=== PATIENT | female | born 1955 | race Caucasian/White ===

== ENCOUNTER → 2019-07-14 15:58 | Outpatient (CLI) | payer BC, SELFPAY ==
--- NOTE | 2019-07-14 16:06 | XR_ITS ---
PROCEDURE: XR LUMBAR SPINE MIN 4V CLINICAL INDICATION: LOW BACK PAIN COMPARISON: No exams were available for comparison FINDINGS: There is mild lumbar curvature convex right. There is 4-5 mm anterolisthesis of L3 on L4 and L4 on L5. Degenerative disc disease is present at L5-S1. Facet arthritic changes are present at L4 and L5. no fracture or dislocation. No lytic or blastic change IMPRESSION: Degenerative changes as described above Dictated by: Elan Lucero MD 07/15/2019 10:25 Signed by: <Electronically signed by Elan Lucero MD in [place]> 07/15/2019 10:25
== END ==
PROVIDERS: PCP Family Medicine; Visit Provider Anesthesiology Pain Medicine
DX: M54.5 Low back pain (principal)
CPT/HCPCS: 72110

== ENCOUNTER → 2019-08-01 14:56 | Outpatient (POV) | payer BC, SELFPAY | PROVIDERS: Visit Provider Dermatology | DX: Z00.00 Encounter for general adult medical examination without abnormal findings (principal) ==

== ENCOUNTER 2020-06-23 14:38 | Emergency (ER) | payer BC, SELFPAY ==
[2020-06-23] VITALS (7 sets, daily range): BP systolic 116–145; BP diastolic 57–92; PULSE 64–101; RESP 17–20; TEMP 36.6–36.7; O2SAT 93–99; BMI 38.0
--- NOTE | 2020-06-23 14:52 | HMH.EDEPIS ---
ED Disposition Clinical Impression: Epistaxis Disposition: Home, Self-Care Condition on Discharge: Good Instructions: DI for Nosebleed Additional Instructions: Leave rapid Rhino in for 24 hours and follow-up with ENT. Referrals: PCP,No [Non-Staff] - Kurt Atkins MD [Staff Physician] - - Critical Care Critical Care Time: No Attestation: On 06/23/20, the high probability of a clinically significant, sudden or life threatening deterioration of the following system(s) required my full and direct attention, intervention and personal management. The time I documented below is in addition to time spent performing reported procedures but includes the following listed in this critical care notation. Medical Decision Making - Medical Records Medical records reviewed: Yes: I reviewed the patient's medical records. - [place] Inquiry Pt receiving controlled substance: No Vital Signs: 06/23/20 14:39 06/23/20 14:44 06/23/20 15:16 Temperature 98.1 F Temperature Source Oral Pulse Rate [Right] 86 71 101 H Respiratory Rate 17 18 17 Blood Pressure [Right Arm] 137/74 134/74 116/66 Blood Pressure Mean [Right Arm] 95 94 82 Blood Pressure Source [Right Arm] Automatic Cuff Automatic Cuff Blood Pressure Position [Right Arm] Supine Supine 02 Sat by Pulse Oximetry 95 99 94 L Oxygen Delivery Method Room Air Room Air 06/23/20 15:36 Temperature Temperature Source Pulse Rate [Right] 74 Respiratory Rate 20 Blood Pressure [Right Arm] 116/57 L Blood Pressure Mean [Right Arm] 76 Blood Pressure Source [Right Arm] Automatic Cuff Blood Pressure Position [Right Arm] Supine 02 Sat by Pulse Oximetry 93 L Oxygen Delivery Method Room Air - Lab Data Lab results reviewed: Yes: I reviewed the patient's lab results. Lab Results 06/23/20 15:34: WBC 8.9, RBC 4.82, Hgb 12.1 L, Hct 36.9 L, MCV 76.6 L, MCH 25.2 L, MCHC 32.8, RDW 18.1 H, Plt Count 238, MPV 9.1, Neut % (Auto) 57.4, Lymph % (Auto) 30.4, [place] % (Auto) 5.2, Eos % (Auto) 6.0, Baso % (Auto) 1.0, Neut # (Auto) 5.1, Lymph # (Auto) 2.7, [place] # (Auto) 0.5, Eos # (Auto) 0.5 H, Baso # (Auto) 0.1 Result diagrams: 06/23/20 15:34 Orders (Tests/Meds): ED MEDICATIONS Discontinued Medications Generic Name Dose Route Start Last Admin Trade Name Rubens PRN Reason Stop Dose Admin Oxymetazoline HCl 1 ml 06/23/20 14:51 06/23/20 15:11 Afrin Nasal [place] 15ml NS 06/23/20 14:52 2 sprays ONCE ONE Administration Epistaxis HPI - General Chief complaint: Epistaxis Stated complaint: epitaxis Time Seen by Provider: 06/23/20 14:50 Mode of Arrival: Ambulatory Source of Information: Patient Limitations: No Limitations Description of Symptoms (Recalled from ER Triage Doc. by RN): Epitaxis since 7 this monring, states she has had some small clots. Pt does take xerelto - History of Present Illness HPI Narrative: This is a 65-year-old female that presents with epistaxis of the left nare. Patient reports intermittent nosebleeds over the past 2 to 3 weeks. 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 She reports her nosebleed has persisted since 0 700 this morning and that she has large clots when blowing the nose. She denies any headache or any fever or chills. Blood presents primarily from the nasal cavity instead of coming through the mouth. Symptoms are moderate in intensity and not exacerbated or relieved by any measures thus far. - Related Data Home Medications Medication Instructions Recorded Confirmed allopurinol 300 mg tablet 300 mg PO DAILY 11/24/18 11/24/18 furosemide 40 mg tablet 40 mg PO DAILY 11/24/18 11/24/18 levothyroxine 112 mcg tablet 112 mcg PO DAILY 11/24/18 11/24/18 methocarbamol 750 mg tablet 750 mg PO QID 11/24/18 11/24/18 omeprazole 20 mg capsule,delayed 20 mg PO DAILY 11/24/18 11/24/18 release pregabalin 150 mg capsule 150 mg PO BID 11/24/18 11/24/18 rivaroxaban 20 mg tablet 20 mg PO DAILY 11/24/18
[2020-06-23 15:44] LABS: Basophils # 0.1 K/mm3 (0-0.2); Eosinophils # 0.5 K/mm3 (0.0-0.4); Hematocrit 36.9 % (37.0-47.0); Hemoglobin 12.1 g/dL (12.2-16.2); Lymphocytes # 2.7 K/mm3 (0.7-4.5); Lymphocytes % 30.4 % (10-50); Mean Corpuscular HGB Conc 32.8 g/dL (31.8-35.4); Mean Corpuscular Hemoglobin 25.2 pg (27.0-31.2); Mean Corpuscular Volume 76.6 fl (81-99); Mean Platelet Volume 9.1 fl (7.4-10.4); Monocytes # 0.5 K/mm3 (0.1-1.0); Monocytes % 5.2 % (1.7-9.3); Neutrophils # 5.1 K/mm3 (1.8-7.8); Neutrophils % 57.4 % (37.0-80.0); Platelet Count 238 K/mm3 (142-424); Red Blood Count 4.82 M/mm3 (4.20-5.40); Red Cell Distribution Width 18.1 % (11.5-17.5); White Blood Count 8.9 K/mm3 (4.8-10.8)
== END 2020-06-23 17:25 | disposition home or self-care (01) ==
PROVIDERS: Emergency Provider Emergency Medicine; PCP Family Medicine
DX: R04.0 Epistaxis (principal); Z79.01 Long term (current) use of anticoagulants; K21.9 Gastro-esophageal reflux disease without esophagitis; I10 Essential (primary) hypertension
CPT/HCPCS: 30901; 85025; 99283

== ENCOUNTER → 2021-05-13 14:05 | Outpatient (CLI) | payer MEDICARE, OTHER, SELFPAY ==
--- NOTE | 2021-05-13 14:10 | US_ITS ---
PROCEDURE: US KIDNEY CLINICAL INDICATION: KIDNEY STONES,CALCULUS OF KIDNEY COMPARISON: CT ABDPELW/O CT ABD PELVIS W/O CONTRAST from 12/22/2016 FINDINGS: There is normal echogenicity and echotexture of the kidneys. No hydronephrosis renal mass or stone. Of the renal vascular flow bilaterally. Visualized liver shows some diffuse fatty infiltration. Visualized spleen is normal. Right kidney measures 10 cm in length and the left kidney 9 cm in length. IMPRESSION: Normal renal ultrasound. No hydronephrosis of either kidney. Dictated by: Jignesh Elena MD 05/13/2021 15:21 Jignesh Elena MD in [place] 05/13/2021 15:21
== END ==
PROVIDERS: PCP Family Medicine; Visit Provider Urology
DX: N20.0 Calculus of kidney (principal)
CPT/HCPCS: 76770

== ENCOUNTER → 2021-06-04 14:29 | Outpatient (CLI) | payer MEDICARE, OTHER, SELFPAY ==
--- NOTE | 2021-06-04 14:41 | XR_ITS ---
PROCEDURE: XR CERVICAL SPINE 5V CLINICAL INDICATION: CERVICALGIA COMPARISON: CR CS5 CERVICAL SPINE 4 OR 5 VIEWS from 05/01/2013 FINDINGS: Normal alignment. Status post anterior cervical disc fusion at C5 and C6 with inter body device. There is degenerative disc disease at C4-C5 with endplate osteophytes. No foraminal narrowing. Facet arthritic changes are present at C3-C4 and C5. no acute fracture or dislocation. IMPRESSION: Postsurgical changes. Degenerative disc disease C4-C5 Dictated by: Elan Lucero MD 06/04/2021 17:12 Elan Lucero MD in [place] 06/04/2021 17:12
== END ==
PROVIDERS: PCP Family Medicine; Visit Provider Nurse Practitioner Acute Care
DX: M54.2 Cervicalgia (principal)
CPT/HCPCS: 72050

== ENCOUNTER → 2021-12-03 14:03 | Outpatient (CLI) | payer MEDICARE, OTHER, SELFPAY ==
--- NOTE | 2021-12-03 14:10 | XR_ITS ---
FINAL REPORT CLINICAL HISTORY: . Low back pain, spinal stenosis. FINDINGS: LUMBAR SPINE Six views were obtained including flexion and extension views. There is no acute fracture. There is advanced disc space narrowing at L5-S1. There is mild instability at the L3-L4 and L4-L5 levels which is accentuated in flexion. In flexion the instability measures about 4 mm at the L3-L4 level and 5 mm at the L4-L5 level. There is moderate facet sclerosis. There is no soft tissue abnormality. IMPRESSION: Spondylolisthesis of L3 on L4 and L4 on 5, accentuated in flexion and consistent with instability. Reviewed, Interpreted and Dictated by Clemente Desai MD Transcribed by Arianna Rao Authenticated by Clemente Desai MD on 12/03/2021 03:54:45 PM [facility]
== END ==
PROVIDERS: PCP Family Medicine; Visit Provider Nurse Practitioner Family
DX: M48.062 Spinal stenosis, lumbar region with neurogenic claudication (principal)
CPT/HCPCS: 72114

== ENCOUNTER → 2022-06-10 14:39 | Outpatient (CLI) | payer MEDICARE, OTHER, SELFPAY ==
--- NOTE | 2022-06-10 14:51 | XR_ITS ---
FINAL REPORT CLINICAL HISTORY: LBP w spondylolisthesis FINDINGS: 4 views including flexion and extension views were obtained. There is no acute fracture. There is grade 1 spondylolisthesis of L3 on L4 and L4 on L5. There is accentuation of spondylolisthesis at L3 on L4 during flexion. There is advanced facet sclerosis throughout the lumbar spine. There is 15 degrees of lumbar scoliosis convex to the right. IMPRESSION: Spondylolisthesis of L3 on L4 and L4 on L5 is accentuated at L3 on L4 during flexion. Advanced facet sclerosis throughout the lumbar spine. Reviewed, Interpreted and Dictated by Clemente Desai MD Transcribed by Duglas So Authenticated and [facility]
== END ==
PROVIDERS: PCP Family Medicine; Visit Provider Nurse Practitioner Family
DX: M43.16 Spondylolisthesis, lumbar region (principal)
CPT/HCPCS: 72110

== ENCOUNTER 2023-03-18 13:54 | Emergency (ER) | payer MEDICARE, SELFPAY ==
[2023-03-18] VITALS (29 sets, daily range): BP systolic 102–190; BP diastolic 53–133; PULSE 55–88; RESP 12–21; TEMP 36.5–36.8; O2SAT 80–100; BMI 38.9
--- NOTE | 2023-03-18 14:01 | XR_ITS ---
FINAL REPORT CLINICAL HISTORY: fall wall with deformity FINDINGS: LEFT ANKLE 3 views were obtained. There is an oblique fracture of the distal fibular metaphysis. There is a fracture at the base of the medial malleolus. There is a probable fracture of the posterior distal tibia. There is 13 mm of lateral subluxation of the talus and foot. There is mild lateral angulation of the talus and foot. There is a chronic calcification inferior to the medial malleolus. There is diffuse soft tissue swelling. IMPRESSION: Oblique fracture of the distal fibular metaphysis. Fracture at the base of the a medial malleolus. Probable fracture of the posterior distal tibia. Lateral angulation and lateral subluxation of the talus of the. Reviewed, Interpreted and Dictated by Dusty Muñiz III, MD Transcribed by Arianna Rao Authenticated and [facility]
[2023-03-18 14:11] LABS: Basophils # 0.1 K/mm3 (0-0.2); Basophils % 0.9 % (0.1-2.0); Eosinophils # 0.2 K/mm3 (0.0-0.4); Eosinophils % 1.8 % (0.1-12.0); Hematocrit 43.1 % (37.0-47.0); Hemoglobin 14.2 g/dL (12.2-16.2); Lymphocytes # 4.4 K/mm3 (0.7-4.5); Lymphocytes % 39.9 % (10-50); Mean Corpuscular HGB Conc 32.9 g/dL (31.8-35.4); Mean Corpuscular Hemoglobin 30.3 pg (27.0-31.2); Mean Corpuscular Volume 92.1 fl (81-99); Mean Platelet Volume 11.5 fl (7.4-10.4); Monocytes # 1.1 K/mm3 (0.1-1.0); Monocytes % 9.5 % (1.7-9.3); Neutrophils # 5.3 K/mm3 (1.8-7.8); Neutrophils % 47.9 % (37.0-80.0); Platelet Count 78 K/mm3 (142-424); Red Blood Count 4.68 M/mm3 (4.20-5.40); Red Cell Distribution Width 15.7 % (11.5-17.5); White Blood Count 11.1 K/mm3 (4.8-10.8)
--- NOTE | 2023-03-18 14:16 | HMH.EDGENADL ---
Discharge Plan Disposition Patient Disposition: Home, Self-Care Prescriptions Prescriptions: New hydrocodone-acetaminophen 5-325 mg tablet 1 tab PO Q6H PRN (Reason: pain) 3 Days Qty: 12 0RF No Action furosemide 40 mg tablet 40 mg PO DAILY atorvastatin 40 mg tablet 40 mg PO HS Label Comments: TAKE 1 TABLET BY MOUTH ONCE DAILY AT NIGHT levothyroxine 137 mcg tablet 137 mcg PO DAILY Label Comments: TAKE 1 TABLET BY MOUTH ONCE DAILY metoprolol tartrate 100 mg tablet 100 mg PO DAILY hydrocodone-acetaminophen 5-325 mg tablet 1 tab PO BIDP PRN (Reason: Chronic pain) Label Comments: TAKE 1 TABLET BY MOUTH TWICE DAILY NEEDED donepezil 10 mg tablet 10 mg PO DAILY Label Comments: TAKE 1 TABLET BY MOUTH ONCE DAILY sertraline 100 mg tablet 100 mg PO DAILY methocarbamol 750 mg tablet 750 mg PO BID allopurinol 300 mg tablet 300 mg PO DAILY Label Comments: TAKE 1 TABLET BY MOUTH ONCE DAILY benazepril 40 mg tablet 40 mg PO DAILY Label Comments: TAKE 1 TABLET BY MOUTH ONCE DAILY pregabalin 150 mg capsule 150 mg PO TID Label Comments: TAKE 1 CAPSULE BY MOUTH THREE TIMES DAILY Xarelto 20 mg tablet 20 mg PO DAILY Label Comments: TAKE 1 TABLET BY MOUTH ONCE DAILY Referrals Follow up/Referrals: Jose Luis Will DO [Staff Physician] - See instructions (within one week ) Provider,Referral, MD [Primary Care Provider] - See instructions Activity Restrictions/Add. Instructions Additional Instructions/Restrictions: Please remain nonweightbearing and call Dr. Will's office soon as possible to make a follow-up appointment within 1 week. Return to the emergency department with any changes in sensation or motor function or severe pain of your left lower extremity. Clinical Impressions Clinical Impression: Bimalleolar fracture of left ankle Discharge ED Provider: Justino Martin General Adult HPI General Chief complaint: Fall Stated complaint: L ANKLE PAIN Time Seen by Provider: 03/18/23 14:16 Mode of Arrival: EMS Source of Information: EMS Limitations: Physical Limitations Description of Symptoms (Recalled from ER Triage Doc. by RN): 67 F presents via EMS after falling down a ramp at her storage building. Patient has obvious deformity to her left ankle. This is braced per EMS with a pillow and coban. 100mcg IVP Fentanyl and 4mg IVP Zofran administered thorugh 20g to left wrist per El EMT-P. Patient reports 10/10 pain still. Pulse intact and good color distal and proximal on LLE History of Present Illness HPI narrative: 67-year-old female who fell down the end of a ramp mechanically sustaining left lower extremity injury. She states that she did not have any injuries elsewhere this was not a syncopal event she does not have any other neurologic symptoms or cardiovascular symptoms that preceded this. She denies any significant loss of motor or sensory function after the injury. Pain is severe. Related Data Home Medications Medication Instructions Recorded Confirmed allopurinol 300 mg tablet 300 mg PO DAILY Gout 03/18/23 03/18/23 atorvastatin 40 mg tablet 40 mg PO HS Cholesterol 03/18/23 03/18/23 benazepril 40 mg tablet 40 mg PO DAILY High blood pressure 03/18/23 03/18/23 donepezil 10 mg tablet 10 mg PO DAILY Memory 03/18/23 03/18/23 furosemide 40 mg tablet 40 mg PO DAILY Edema 03/18/23 03/18/23 hydrocodone 5 mg-acetaminophen 325 1 tab PO BIDP PRN Chronic pain 03/18/23 03/18/23 mg tablet levothyroxine 137 mcg tablet 137 mcg PO DAILY Thyroid 03/18/23 03/18/23 methocarbamol 750 mg tablet 750 mg PO BID Muscle spams 03/18/23 03/18/23 metoprolol tartrate 100 mg tablet 100 mg PO DAILY High blood pressure 03/18/23 03/18/23 pregabalin 150 mg capsule 150 mg PO TID Pain 03/18/23 03/18/23 rivaroxaban 20 mg tablet (Xarelto) 20 mg PO DAILY Blood thinner 03/18/23 03/18/23 sertraline 100 mg tablet 100 mg PO DAILY M
[2023-03-18 14:18] LABS: Chloride 105 mmol/L (98-107); Potassium 4.2 mmoL/L (3.5-5.1); Sodium 140 mmol/L (136-145)
--- NOTE | 2023-03-18 14:19 | PC.NURSE ---
Waiting on Dr. Will to call back to ER
[2023-03-18 14:21] LABS: Anion Gap 14.2 mEq/L (5-15); Blood Urea Nitrogen 19 mg/dl (7-17); Calcium 8.9 mg/dl (8.4-10.2); Carbon Dioxide 25 mmol/L (22.0-30.0); Creatinine Clearance Estimated 67 mL/min (50-200); Estimated Glomerular Filt Rate 41 ml/min (>60); GFR (African American) 50 ML/MIN (>60); Glucose 115 mg/dl (74-100)
--- NOTE | 2023-03-18 14:25 | PC.NURSE ---
spoke to dr hernandez and let him know er md was at bedside reducing fracture and splinting, dr hernandez said to relay to er md that pt could follow up with office out pt. and no weight bearing on the left side, she would need surgery but they had to wait for swelling to go down before hand
--- NOTE | 2023-03-18 14:32 | PC.NURSE ---
Dr. Will returned call while ER MD was doing reduction
--- NOTE | 2023-03-18 14:48 | XR_ITS ---
FINAL REPORT CLINICAL HISTORY: post reduction COMPARISON: Earlier the same day FINDINGS: LEFT ANKLE Two views were obtained. A cast is present. There has been interval improvement in alignment of the distal tibial and fibular fracture fragments. There has been interval improvement in the lateral subluxation of the talus and foot. IMPRESSION: Interval improvement in alignment of distal tibia and fibula fracture fragments and interval improvement in lateral subluxation of the talus of foot. Reviewed, Interpreted and Dictated by Dusty Muñiz III, MD Transcribed by Arianna Rao Authenticated and [facility]
--- NOTE | 2023-03-18 15:21 | PC.NURSE ---
Patient remains stable post reduction of left ankle. Pulses and color WNL distal and proximal to injury. VSS. RASS 0, GCS 15
--- NOTE | 2023-03-18 15:50 | PC.NURSE ---
Patient has a walker and wheelchair at home which she uses PRN. Attending notified
--- NOTE | 2023-03-18 16:30 | PC.NURSE ---
pt transferred to wheelchair with minimal assistance. PT in bathroom at this time, call light in reach
== END 2023-03-18 16:52 | disposition home or self-care (01) ==
PROVIDERS: Emergency Provider Student in an Organized Health Care Education/Training Program
DX: S82.842A Displaced bimalleolar fracture of left lower leg, initial encounter for closed fracture (principal); W10.2XXA Fall (on)(from) incline, initial encounter
CPT/HCPCS: 27810; 29515; 73600; 80048; 85025; 99152; 99285

== ENCOUNTER → 2023-03-30 07:11 | Outpatient (CLI) | payer MEDICARE, SELFPAY ==
--- NOTE | 2023-03-30 07:11 | CT_ITS ---
FINAL REPORT CLINICAL HISTORY: Left ankle fracture COMPARISON: Left ankle radiographs dated 03/18/2023 FINDINGS: CT LEFT ANKLE WITHOUT CONTRAST TECHNIQUE: Axial, reformatted, and 3D images were obtained of the left ankle. This study was performed with techniques to keep radiation doses as low as reasonably achievable, (ALARA). Individualized dose reduction techniques using automated exposure control or adjustment of mA and/or kV according to the patient's size were employed. FINDINGS: There are comminuted, distal trimalleolar fractures of the ankle with destruction of the mortise. There is a vertical fracture through the posterior malleolus which is mildly displaced and extends to the posterior mortise. There is also a displaced, oblique and comminuted fracture of the distal fibula. Fracture fragments are displaced approximately 8 mm. There is a transverse, displaced fracture through the medial malleolus. There is lateral displacement of the talus relative to the distal fibula. Displacement measures 1 cm. IMPRESSION: Displaced, comminuted trimalleolar fractures of the ankle with disruption of the mortise. Reviewed, Interpreted and Dictated by Clemente Desai MD Transcribed by Nataliya Sears Authenticated and [facility]
--- NOTE | 2023-03-30 07:13 | XR_ITS ---
FINAL REPORT TECHNIQUE: Chest PA & Lateral CLINICAL HISTORY: HYPERTENSION FINDINGS: 2 views of the chest were performed. The heart size is normal. The mediastinum is within normal limits. The lungs are underinflated. There is bibasilar atelectasis. There are no pleural effusions. There is no pneumothorax. The bony thorax appears intact. IMPRESSION: Bibasilar atelectasis. Reviewed, Interpreted and Dictated by Clemente Desai MD Transcribed by Nataliya Sears Authenticated and [facility]
--- NOTE | 2023-03-30 07:48 | ECG_ITS ---
APPROVED REPORT Exam: Resting ECG HR:53 bpm ECG Measurements Heart Rate 53 AXES MI 172 P 40 QRSd 102 QRS -21 QT 433 T 13 QTc 415 Conclusion SINUS BRADYCARDIA BORDERLINE LEFT AXIS DEVIATION [QRS AXIS < -20] MODERATE VOLTAGE CRITERIA FOR LVH, CONSIDER NORMAL VARIANT [MEETS CRITERIA IN ONE OF: R(aVL), S(V1), R(V5), R(V5/V6)+S(V1)] NONSPECIFIC T-WAVE ABNORMALITY BORDERLINE ECG UNCONFIRMED REPORT Electronically signed by : Francisco Pavon MD 03/30/2023 20:18:46
[2023-03-30 08:16] LABS: Basophils # 0.1 K/mm3 (0-0.2); Basophils % 0.8 % (0.1-2.0); Eosinophils # 0.3 K/mm3 (0.0-0.4); Eosinophils % 3.4 % (0.1-12.0); Hematocrit 44.8 % (37.0-47.0); Hemoglobin 14.8 g/dL (12.2-16.2); Lymphocytes # 2.5 K/mm3 (0.7-4.5); Lymphocytes % 25.5 % (10-50); Mean Corpuscular Hemoglobin 30.8 pg (27.0-31.2); Mean Corpuscular Volume 93.3 fl (81-99); Monocytes # 0.6 K/mm3 (0.1-1.0); Monocytes % 5.9 % (1.7-9.3); Neutrophils # 6.3 K/mm3 (1.8-7.8); Neutrophils % 64.4 % (37.0-80.0); Platelet Count 220 K/mm3 (142-424); Red Cell Distribution Width 15.2 % (11.5-17.5); White Blood Count 9.8 K/mm3 (4.8-10.8)
[2023-03-30 09:24] LABS: Chloride 96 mmol/L (98-107); Sodium 142 mmol/L (136-145)
[2023-03-30 09:27] LABS: Blood Urea Nitrogen 16 mg/dl (7-17); Carbon Dioxide 29 mmol/L (22.0-30.0); Estimated Glomerular Filt Rate 50 ml/min (>60); GFR (African American) 60 ML/MIN (>60)
[2023-03-30 09:28] LABS: Calcium 9.3 mg/dl (8.4-10.2); Glucose 190 mg/dl (74-100)
== END ==
PROVIDERS: PCP Family Medicine; Visit Provider Orthopaedic Surgery
DX: S82.842A Displaced bimalleolar fracture of left lower leg, initial encounter for closed fracture (principal); R04.0 Epistaxis
CPT/HCPCS: 36415; 71046; 73700; 80048; 85025; 93005

== ENCOUNTER 2023-04-02 06:12 | Day surgery (SDC) | payer MEDICARE, SELFPAY ==
[2023-03-30 15:38] VITALS: BMI 38.9
--- NOTE | 2023-03-30 17:04 | SUR.PREOP ---
Received call from Pt's shipping hand at [facility]. Approval for patient to be off Xarelto starting today through April 02. Relayed message to patient.
[2023-04-02] VITALS (18 sets, daily range): BP systolic 94–157; BP diastolic 45–97; PULSE 51–76; RESP 10–20; TEMP 36.2–43; O2SAT 94–100
--- NOTE | 2023-04-02 07:15 | SUR.PREOP ---
REPORT GIVEN TO NACHO NAGY RN AT 0715. TO REPORT TO SURGEON PT DOES NOT HAVE MEDICAL CLEARANCE FROM PCP AND DID NOT DO [place].
--- NOTE | 2023-04-02 08:17 | P.PN_ITS ---
[facility] Disclaimer: The information contained in this section may have been updated after the patient was seen, as this information can be updated by other users. Medical History (Updated 04/02/23 @ 06:44 by Brianna Donis RN) Allergies Anxiety Chronic back pain Chronic kidney disease Chronic kidney disease Depression Edema Gout Hemorrhoid History of gastroesophageal reflux (GERD) Hyperlipidemia Hypertension Hypothyroid Irritable bowel syndrome (IBS) Kidney stone Migraine Muscle spasm Urinary tract infection Surgical History (Updated 04/02/23 @ 06:44 by Brianna Donis RN) H/O tubal ligation History of appendectomy History of carpal tunnel surgery History of cholecystectomy History of knee replacement History of surgery Family History Father Family history of diabetes mellitus type II Social History (Updated 04/02/23 @ 06:45 by Brianna Donis RN) Smoking Status: Never smoker alcohol intake: never substance use type: denies use current occupational status: retired and disabled Travel in the last 8 weeks: None caffeine: No [facility] Anesthesia Checklist Patient Identification Patient Identification: Arm Band and Verbal (Name & ) Structural Data Admitted From: Home Planned Operative Procedure/s: Left Ankle ORIF Consent for Planned Operative Procedure(s) Verified: Yes Verified Documents: Surgical Consent NPO Status Verified Time NPO: 00:00 Chart Verification Results Verified: BMP Additional verifications Anesthesia Reactions: No Hx Blood Transfusions: No Blood Transfusion Reaction: No Airway Assessment C-Spine Mobility Assessed: Yes TMJ Mobility Assessed: Yes Anesthesia Plan Anesthesia Risk discussed: Yes Anesthesia Type: General
--- NOTE | 2023-04-02 09:36 | XR_ITS ---
FINAL REPORT CLINICAL HISTORY: LEFT ANKLE ORIF IN OR, ft 1:20 FINDINGS: FLUOROSCOPY LESS THAN 1 HOUR HISTORY: Fluoroscopy guided injection. FINDINGS: Fluoroscopic guidance was provided for left ankle injection. Six spot films were obtained. 1.2 minutes of fluoroscopy time were used. IMPRESSION: As above Reviewed, Interpreted and Dictated by Clemente Desai MD Transcribed by Arlen Baker Authenticated and [facility]
--- NOTE | 2023-04-02 10:11 | P.PNANES_ITS ---
[facility] Anesthesia Record Part I Anesthesia Record I Intake, IV Amount: 1,100 Estimated blood loss (mL): 10 Urine output (mL): 0 Blood Pressure: 155/70 SaO2: 94 Pulse Rate: 71 Respiratory Rate: 10 Temperature: 97.9 F Patient is:: Drowsy Stable to PACU at:: 10:10
--- NOTE | 2023-04-02 11:08 | SUR.OPER ---
0934- Family updated of patient's current status by DORI Norton.
--- NOTE | 2023-04-02 17:32 | EXP.OP.NOTE ---
Date of procedure: 04/02/23 Pre-op Diagnosis:: Left ankle fracture Post-op Diagnosis:: Same Procedure performed:: 23668: Open reduction internal fixation left trimalleolar ankle fracture without fixation of the posterior lip 82924: Fluoroscopic stress examination left ankle 56296: Syndesmotic fixation Surgeon:: Raciel Conroy JR, MD TESTING CONSULTANT:: Hao Silverman Anesthesia: GETA and regional Estimated blood loss (mL): 30 Clinical Note:: 67-year-old female with left ankle fracture. She underwent CT which demonstrated a small posterior malleolus fragment. Given the unstable nature of the fracture after discussion of risk, benefits, alternatives, she wished to proceed with open reduction internal fixation left ankle fracture. I personally discussed the surgery at length with the patient. The procedure was discussed using terms that the patient clearly understood, and I reviewed the consent form with the patient personally. The consent form was then reviewed again, along with other written material about preparation for the surgery, with the senior medical technologist. All of the alternatives that I know to treat the patient?s condition, including non-operative care and other surgical procedures, were discussed during the office visit. We spent a great deal of time talking about the benefit to risk analysis of the treatment options and the proposed surgery. The risks of the planned procedure include, but are not limited to, the possibility of wound healing problems, nerve damage, tendon damage, infection, incomplete relief of pain, chronic pain, the development of reflex sympathetic dystrophy, loss of limb, . The pros and cons of anticoagulation were discussed. I also had a discussion with the patient regarding the risks of smoking and second hand smoke, as well as the consequence of noncompliance with the postoperative regimen. My recommendations about driving a motor vehicle or operating machinery were clearly outlined. As with any surgery, this patient was told about the possibility of additional surgery. My qualifications and experience in recommending the procedure were discussed. There was adequate time for questions and all of the patient?s questions were answered. The patient was told to call the office before surgery if they had any questions about the operation. After this discussion, it was my professional opinion that the patient fully understood their medical condition and that proper informed consent had been obtained. Operative findings:: Improve length, alignment, rotation of the fracture, symmetric mortise with safe intraosseous extra-articular Operative note:: Patient was identified in preoperative holding. Operative site was marked in indelible ink. History physical exam were reviewed and updated. Patient was surrendered to the anesthesia team, transported to the operative suite, and placed supine on a well-padded radiolucent table. After anesthesia induction, a bump was placed under the ipsilateral hip. A weight based dose of antibiotics was administered within 30 minutes prior to incision. Nonsterile thigh tourniquet was applied to the operative extremity. The operative extremity was thoroughly cleansed and then prepped and draped in the usual sterile fashion. The operative team donned sterile gloves and a time-out was called. All in attendance agreed regarding the patient's identity, proposed procedure, and operative site. An Esmarch tourniquet was used to exsanguinate the operative extremity and the tourniquet was inflated to 300 mm of mercury. I made a lateral approach to the fibula, dissected through skin and subcutaneous tissue with care taken to avoid injuring the superficial peroneal nerve. Identified the fibula fracture, clean the fracture site from interposed hematoma and periosteum, obtained provisional fixation held with a lobster-claw clamp, and placed a 2.7 mm lag screw perpendicular across the fracture site. I the
--- NOTE | 2023-04-05 07:44 | EXP.ANES.II ---
[facility] Anesthesia Record Part II Anesthesia Record Part II Discharge Time: 11:28 Destination: Surgical Day Care (OP Surgery) PACU nurse assessment reviewed?: Yes Patient Condition:: Good Anesthesia Complications:: None Swallowing reflex intact?: Yes Cyanosis?: No Blood Pressure: 106/73 Pulse Rate: 74 Temperature: 97.6 F Mental Status: Alert & Oriented Pain level:: 6 Nausea and/or vomitting:: None Intake, IV Amount: 0
[2023-04-05 07:45] VITALS: BP 106/73; PULSE 74; TEMP 36.4
== END 2023-04-02 12:30 | disposition home or self-care (01) ==
PROVIDERS: PCP Family Medicine; Visit Provider Orthopaedic Surgery
DX: S82.852A Displaced trimalleolar fracture of left lower leg, initial encounter for closed fracture (principal); W10.2XXA Fall (on)(from) incline, initial encounter; Y92.71 Barn as the place of occurrence of the external cause
CPT/HCPCS: 73600; 76000; 96374; C1713; C1776; J2405; J3370

== ENCOUNTER 2023-04-02 22:38 | Emergency (ER) | payer MEDICARE, SELFPAY ==
[2023-04-02 22:53] VITALS: BP 105/68; PULSE 83; RESP 18; TEMP 38.3; O2SAT 98; BMI 38.9
[2023-04-02 23:08] LABS: Basophils # 0.1 K/mm3 (0-0.2); Basophils % 0.7 % (0.1-2.0); Eosinophils # 0.3 K/mm3 (0.0-0.4); Eosinophils % 2.5 % (0.1-12.0); Hematocrit 41.3 % (37.0-47.0); Hemoglobin 13.5 g/dL (12.2-16.2); Lymphocytes # 3.1 K/mm3 (0.7-4.5); Lymphocytes % 25.5 % (10-50); Mean Corpuscular HGB Conc 32.6 g/dL (31.8-35.4); Mean Corpuscular Hemoglobin 30.1 pg (27.0-31.2); Mean Corpuscular Volume 92.2 fl (81-99); Mean Platelet Volume 10.5 fl (7.4-10.4); Monocytes # 0.7 K/mm3 (0.1-1.0); Monocytes % 6.1 % (1.7-9.3); Neutrophils # 7.9 K/mm3 (1.8-7.8); Neutrophils % 65.2 % (37.0-80.0); Platelet Count 142 K/mm3 (142-424); Red Blood Count 4.48 M/mm3 (4.20-5.40); Red Cell Distribution Width 15.5 % (11.5-17.5); White Blood Count 12.1 K/mm3 (4.8-10.8)
[2023-04-02 23:20] LABS: Chloride 97 mmol/L (98-107); Potassium 3.8 mmoL/L (3.5-5.1); Sodium 140 mmol/L (136-145)
[2023-04-02 23:23] LABS: Alanine Aminotransferase 45 U/L (12-78); Albumin Level 3.9 g/dl (3.5-5.0); Albumin/Globulin Ratio 1.1 (1.1-1.8); Alkaline Phosphatase 106 U/L (38-126); Anion Gap 20.8 mEq/L (5-15); Aspartate Amino Transferase 55 U/L (14-36); Bilirubin,Total 0.8 mg/dl (0.2-1.3); Blood Urea Nitrogen 16 mg/dl (7-17); Carbon Dioxide 26 mmol/L (22.0-30.0); Creatinine Clearance Estimated 67 mL/min (50-200); Estimated Glomerular Filt Rate 41 ml/min (>60); GFR (African American) 50 ML/MIN (>60); Globulin 3.4 g/dL (1.3-3.2); Glucose 179 mg/dl (74-100); Total Protein,Serum 7.3 g/dl (6.3-8.2)
[2023-04-02 23:25] LABS: Lactic Acid 3.7 mmol/L (0.7-2.1)
[2023-04-03 00:26] VITALS: BP 112/71; PULSE 80; RESP 18; TEMP 37.3; O2SAT 98
--- NOTE | 2023-04-03 03:04 | HMH.EDGENADL ---
Discharge Plan Disposition Patient Disposition: Home, Self-Care Condition: Good Prescriptions Prescriptions: New cephalexin 500 mg capsule 500 mg PO Q8H 7 Days Qty: 21 0RF clindamycin HCl 300 mg capsule 300 mg PO Q8H 7 Days Qty: 21 0RF No Action furosemide 40 mg tablet 40 mg PO DAILY atorvastatin 40 mg tablet 40 mg PO HS Label Comments: TAKE 1 TABLET BY MOUTH ONCE DAILY AT NIGHT levothyroxine 137 mcg tablet 137 mcg PO DAILY Label Comments: TAKE 1 TABLET BY MOUTH ONCE DAILY metoprolol tartrate 100 mg tablet 100 mg PO DAILY hydrocodone-acetaminophen 5-325 mg tablet 1 tab PO BIDP PRN (Reason: Chronic pain) Label Comments: TAKE 1 TABLET BY MOUTH TWICE DAILY NEEDED donepezil 10 mg tablet 10 mg PO DAILY Label Comments: TAKE 1 TABLET BY MOUTH ONCE DAILY sertraline 100 mg tablet 100 mg PO DAILY methocarbamol 750 mg tablet 750 mg PO BID allopurinol 300 mg tablet 300 mg PO DAILY Label Comments: TAKE 1 TABLET BY MOUTH ONCE DAILY benazepril 40 mg tablet 40 mg PO DAILY Label Comments: TAKE 1 TABLET BY MOUTH ONCE DAILY pregabalin 150 mg capsule 150 mg PO TID Label Comments: TAKE 1 CAPSULE BY MOUTH THREE TIMES DAILY Xarelto 20 mg tablet 20 mg PO DAILY Label Comments: TAKE 1 TABLET BY MOUTH ONCE DAILY cephalexin 500 mg capsule 500 mg PO QID Qty: 20 0RF oxycodone 5 mg tablet 5 mg PO Q4H PRN (Reason: pain) Qty: 45 0RF ondansetron HCl 4 mg tablet 4 mg PO Q8H PRN (Reason: nausea and vomiting) Qty: 14 0RF Referrals Follow up/Referrals: Idris Cueva [Primary Care Provider] - See instructions Clinical Impressions Clinical Impression: Post-operative pain Discharge ED Provider: Randell Li General Adult HPI General Chief complaint: PAIN Stated complaint: post op 04/02, left foot pain Time Seen by Provider: 04/02/23 22:41 Mode of Arrival: Wheelchair Source of Information: Patient Limitations: No Limitations Description of Symptoms (Recalled from ER Triage Doc. by RN): Pt arrives via wheel chair from home. States that she had surgery on her left ankle this morning by following an ankle fracture and has been having severe pain since 0. History of Present Illness HPI narrative: Rhonda is a very pleasant 67-year-old lady with a past medical history of chronic pattern of her sounds well in surgical's lifetime. Pressure held on the ORIF of previous trimalleolar fracture performed this morning. She states that the nerve blocks did not work. She complains of severe postoperative pain. Denies any new trauma. No numbness weakness paresthesias. No fevers that she is aware of. Related Data Home Medications Medication Instructions Recorded Confirmed allopurinol 300 mg tablet 300 mg PO DAILY Gout 03/18/23 04/02/23 atorvastatin 40 mg tablet 40 mg PO HS Cholesterol 03/18/23 04/02/23 benazepril 40 mg tablet 40 mg PO DAILY High blood pressure 03/18/23 04/02/23 donepezil 10 mg tablet 10 mg PO DAILY Memory 03/18/23 04/02/23 furosemide 40 mg tablet 40 mg PO DAILY Edema 03/18/23 04/02/23 hydrocodone 5 mg-acetaminophen 325 1 tab PO BIDP PRN Chronic pain 03/18/23 04/02/23 mg tablet levothyroxine 137 mcg tablet 137 mcg PO DAILY Thyroid 03/18/23 04/02/23 methocarbamol 750 mg tablet 750 mg PO BID Muscle spams 03/18/23 04/02/23 metoprolol tartrate 100 mg tablet 100 mg PO DAILY High blood pressure 03/18/23 04/02/23 pregabalin 150 mg capsule 150 mg PO TID Pain 03/18/23 04/02/23 rivaroxaban 20 mg tablet (Xarelto) 20 mg PO DAILY Blood thinner 03/18/23 03/30/23 sertraline 100 mg tablet 100 mg PO DAILY Mood 03/18/23 04/02/23 Previous Rx's Medication Instructions Recorded cephalexin 500 mg capsule 500 mg PO QID #20 caps 04/02/23 ondansetron HCl 4 mg tablet 4 mg PO Q8H PRN nausea and 04/02/23 vomiting #14 tabs oxycodone 5 mg tablet 5 mg PO Q4H PRN pain #45 tabs 05
== END 2023-04-03 00:28 | disposition home or self-care (01) ==
PROVIDERS: Emergency Provider Emergency Medicine; PCP Family Medicine
DX: W10.2XXA Fall (on)(from) incline, initial encounter (principal); Y92.71 Barn as the place of occurrence of the external cause; S82.852A Displaced trimalleolar fracture of left lower leg, initial encounter for closed fracture; I12.9 Hypertensive chronic kidney disease with stage 1 through stage 4 chronic kidney disease, or unspecified chronic kidney disease; E03.9 Hypothyroidism, unspecified; M79.672 Pain in left foot; Z79.899 Other long term (current) drug therapy; G89.18 Other acute postprocedural pain; Z79.01 Long term (current) use of anticoagulants
CPT/HCPCS: 27822; 27829; 73600; 76000; 80053; 83605; 85025; 96361; 96374; 96375; 96376; 99284; C1713; C1776; J0131; J2405; J3370

== ENCOUNTER 2023-04-06 13:44 | Emergency (ER) | payer MEDICARE, SELFPAY ==
--- NOTE | 2023-04-06 13:44 | ECG_ITS ---
APPROVED REPORT Exam: Resting ECG HR:60 bpm ECG Measurements Heart Rate [address] 170 P 67 QRSd 99 QRS -24 QT 401 T 15 QTc 401 Conclusion SINUS RHYTHM BORDERLINE LEFT AXIS DEVIATION [QRS AXIS < -20] LOW QRS VOLTAGE IN PRECORDIAL LEADS [QRS DEFLECTION < 1.0 mV IN CHEST LEADS] PATTERN CONSISTENT WITH PULMONARY DISEASE ABNORMAL ECG UNCONFIRMED REPORT Electronically signed by : Francisco Pavon MD 04/06/2023 22:03:28
[2023-04-06 13:45] VITALS: BP 111/46; PULSE 56; RESP 19; TEMP 37.1; O2SAT 92; BMI 38.9
[2023-04-06 13:52] VITALS: BMI 38.9
--- NOTE | 2023-04-06 13:53 | XR_ITS ---
FINAL REPORT CLINICAL HISTORY: Precordial chest pain, fever COMPARISON: 03/30/2023 FINDINGS: No acute pulmonary opacity is present. There is no evidence of effusion or pneumothorax. Mediastinum is unremarkable. Heart size is normal. IMPRESSION: No change from prior. Reviewed, Interpreted and Dictated by Solomon Tarango MD Transcribed by Arlen Baker Authenticated and [facility]
[2023-04-06 14:01] LABS: Microscopic, Urine URINE MICROSCOPIC (MICROSCOPIC)
--- NOTE | 2023-04-06 14:06 | HMH.EDGENADL ---
Discharge Plan Disposition Patient Disposition: Home, Self-Care Condition: Good Prescriptions Prescriptions: New pantoprazole 40 mg tablet,delayed release (DR/EC) 40 mg PO DAILY Qty: 30 1RF sennosides-docusate sodium [Senna with Docusate Sodium] 8.6-50 mg tablet 1 tab-cap PO DAILY Qty: 30 0RF polyethylene glycol 3350 [Miralax] 17 gram/dose powder 17 g PO DAILY Qty: 510 0RF No Action clindamycin HCl 300 mg capsule 300 mg PO TID Label Comments: TAKE 1 CAPSULE BY MOUTH EVERY 8 HOURS FOR 7 DAYS cephalexin 500 mg capsule 500 mg PO QID Label Comments: TAKE 1 CAPSULE BY MOUTH 4 TIMES DAILY furosemide 40 mg tablet 40 mg PO DAILY atorvastatin 40 mg tablet 40 mg PO HS Label Comments: TAKE 1 TABLET BY MOUTH ONCE DAILY AT NIGHT levothyroxine 137 mcg tablet 137 mcg PO DAILY Label Comments: TAKE 1 TABLET BY MOUTH ONCE DAILY metoprolol tartrate 100 mg tablet 100 mg PO DAILY hydrocodone-acetaminophen 5-325 mg tablet 1 tab PO BIDP PRN (Reason: Chronic pain) Label Comments: TAKE 1 TABLET BY MOUTH TWICE DAILY NEEDED donepezil 10 mg tablet 10 mg PO DAILY Label Comments: TAKE 1 TABLET BY MOUTH ONCE DAILY sertraline 100 mg tablet 100 mg PO DAILY methocarbamol 750 mg tablet 750 mg PO BID allopurinol 300 mg tablet 300 mg PO DAILY Label Comments: TAKE 1 TABLET BY MOUTH ONCE DAILY benazepril 40 mg tablet 40 mg PO DAILY Label Comments: TAKE 1 TABLET BY MOUTH ONCE DAILY pregabalin 150 mg capsule 150 mg PO TID Label Comments: TAKE 1 CAPSULE BY MOUTH THREE TIMES DAILY Xarelto 20 mg tablet 20 mg PO DAILY Label Comments: TAKE 1 TABLET BY MOUTH ONCE DAILY oxycodone 5 mg tablet 5 mg PO Q4H PRN (Reason: pain) Qty: 45 0RF ondansetron HCl 4 mg tablet 4 mg PO Q8H PRN (Reason: nausea and vomiting) Qty: 14 0RF Referrals Follow up/Referrals: Provider,Referral, MD [Referring] - See instructions Activity Restrictions/Add. Instructions Additional Instructions/Restrictions: You were evaluated in the emergency department today. We advised staying for a second troponin, however since you are electing to go home please return if you have any new or worsening symptoms. Follow-up closely with your primary care provider as well as your orthopedist. superintendent distribution your prescriptions at the pharmacy and take them as prescribed. Return to the emergency department for any new or worsening symptoms. Clinical Impressions Clinical Impression: Chest pain due to GERD, Acute chest pain Instructions Patient Instructions: DI for Gastroesophageal Reflux Disease (GERD), DI for Atypical Chest Pain, DI for Constipation Discharge ED Provider: Gracie Morales General Adult HPI General Chief complaint: Chest Pain Stated complaint: CP Time Seen by Provider: 04/06/23 13:53 History of Present Illness HPI narrative: This patient is a 67-year-old female with a history of obesity, CKD, hypertension, hyperlipidemia, hypothyroidism, and recent bimalleolar fracture status post operative intervention who is currently on Xarelto presented to the emergency department for evaluation with concern for substernal chest pain. She states that it is nonradiating and worse with swallowing. She states that she has been told that she has a history of esophageal spasms. She tried Mylanta and Prilosec at home without good improvement. She denies any cough, congestion, shortness of breath, abdominal pain or other concerns. She does complain of leg pain secondary to her fracture that is poorly controlled. She also admits to constipation. Related Data Home Medications Medication Instructions Recorded Confirmed allopurinol 300 mg tablet 300 mg PO DAILY Gout 03/18/23 04/06/23 atorvastatin 40 mg tablet 40 mg PO HS Cholesterol 03/18/23 04/06/23 benazepril 40 mg tablet 40 mg PO DAILY High blood pressure
[2023-04-06 14:13] LABS: Appearance,Urine CLEAR (Clear); Bilirubin,Urine Negative (Negative); Blood, Urine Negative (Negative); Color,Urine YELLOW (Yellow); Glucose,Urine (UA) Negative (Negative); Ketones,Urine Negative (Negative); Leukocyte Esterase,Urine TRACE (Negative); Nitrate,Urine Negative (Negative); PH,Urine 5.5 (5.0-8.5); Protein,Urine Negative (Negative); Specific Gravity, Urine 1.015 (1.005-1.030); Urobilinogen,Urine 0.2 EU/dl (0.2)
[2023-04-06 14:20] LABS: Chloride 97 mmol/L (98-107); Sodium 138 mmol/L (136-145)
[2023-04-06 14:21] LABS: Potassium 3.6 mmoL/L (3.5-5.1)
[2023-04-06 14:22] LABS: Bacteria,Urine Trace /lpf; Renal Epithelial Cells,Urine Occasional #/lpf (0); Squamous Epithelial Cell,Urine Occasional #/hpf (0-5)
[2023-04-06 14:22] LABS: Bilirubin,Unconjugated 0.9 mg/dL (0.0-1.1)
[2023-04-06 14:23] LABS: Alanine Aminotransferase 35 U/L (12-78); Albumin Level 3.7 g/dl (3.5-5.0); Alkaline Phosphatase 104 U/L (38-126); Aspartate Amino Transferase 44 U/L (14-36); Basophils # 0.1 K/mm3 (0-0.2); Basophils % 0.5 % (0.1-2.0); Bilirubin,Direct 0.1 mg/dl (0.0-0.4); Bilirubin,Indirect 0.9 mg/dL (0.0-0.9); Eosinophils # 0.4 K/mm3 (0.0-0.4); Eosinophils % 3.5 % (0.1-12.0); Hematocrit 40.6 % (37.0-47.0); Lactic Acid 2.2 mmol/L (0.7-2.1); Lymphocytes # 2.9 K/mm3 (0.7-4.5); Mean Corpuscular HGB Conc 32.1 g/dL (31.8-35.4); Mean Corpuscular Hemoglobin 30.3 pg (27.0-31.2); Mean Corpuscular Volume 94.2 fl (81-99); Mean Platelet Volume 11.3 fl (7.4-10.4); Monocytes # 0.6 K/mm3 (0.1-1.0); Monocytes % 5.4 % (1.7-9.3); Neutrophils # 6.6 K/mm3 (1.8-7.8); Neutrophils % 62.7 % (37.0-80.0); Platelet Count 172 K/mm3 (142-424); Red Blood Count 4.31 M/mm3 (4.20-5.40); Red Cell Distribution Width 15.5 % (11.5-17.5); Total Protein,Serum 7.6 g/dl (6.3-8.2); White Blood Count 10.5 K/mm3 (4.8-10.8)
[2023-04-06 14:24] LABS: Anion Gap 14.6 mEq/L (5-15); Blood Urea Nitrogen 13 mg/dl (7-17); Calcium 8.7 mg/dl (8.4-10.2); Carbon Dioxide 30 mmol/L (22.0-30.0); Creatinine Clearance Estimated 73 mL/min (50-200); Estimated Glomerular Filt Rate 45 ml/min (>60); GFR (African American) 54 ML/MIN (>60); Glucose 129 mg/dl (74-100)
[2023-04-06 14:30] VITALS: BP 102/57; PULSE 53; O2SAT 92
[2023-04-06 14:36] LABS: Troponin I 0.01 ng/ml (0.00-0.034)
[2023-04-06 15:01] VITALS: BP 102/57; PULSE 53; RESP 18; TEMP 37.1; O2SAT 95
[2023-04-06 18:08] LABS: Reflex Lactic Add Lactic Reflex
== END 2023-04-06 15:01 | disposition home or self-care (01) ==
PROVIDERS: Emergency Provider Emergency Medicine; PCP Family Medicine
DX: R07.9 Chest pain, unspecified (principal); K21.9 Gastro-esophageal reflux disease without esophagitis; I12.9 Hypertensive chronic kidney disease with stage 1 through stage 4 chronic kidney disease, or unspecified chronic kidney disease; N18.9 Chronic kidney disease, unspecified
CPT/HCPCS: 71045; 80048; 80076; 81001; 83605; 84484; 85025; 93005; 96374; 96375; 99285; J2405

== ENCOUNTER 2023-04-16 08:27 | Outpatient (RCR) | payer MEDICARE, SELFPAY | END 2023-04-16 09:45 | disposition home or self-care (01) | LOC: PT 08:27 | PROVIDERS: Visit Provider Orthopaedic Surgery | DX: S82.842A Displaced bimalleolar fracture of left lower leg, initial encounter for closed fracture (principal) | CPT/HCPCS: 97760 ==

== ENCOUNTER → 2023-04-16 08:50 | Outpatient (CLI) | payer MEDICARE, SELFPAY ==
--- NOTE | 2023-04-16 08:55 | XR_ITS ---
FINAL REPORT CLINICAL HISTORY: Pt fell [employer] onto sacrum/coccyx. Pt states most pain in coccyx region, pt unable to lay flat very well FINDINGS: Sacrum/coccyx Three views were obtained. There is irregularity of S5 worrisome for a nondisplaced fracture. There is moderate degenerative change in the lower lumbar spine. No soft tissue abnormality is identified. IMPRESSION: Findings worrisome for a nondisplaced fracture of S5. Reviewed, Interpreted and Dictated by Dusty Muñiz III, MD Transcribed by Aure Jaimes Authenticated and [facility]
== END ==
PROVIDERS: PCP Family Medicine; Visit Provider Orthopaedic Surgery
DX: S33.8XXA Sprain of other parts of lumbar spine and pelvis, initial encounter (principal)
CPT/HCPCS: 72220

== ENCOUNTER → 2023-04-22 07:36 | Outpatient (CLI) | payer MEDICARE, SELFPAY ==
--- NOTE | 2023-04-22 07:36 | CT_ITS ---
FINAL REPORT TECHNIQUE: Axial images through the abdomen and pelvis were performed without contrast. This study was performed with techniques to keep radiation doses as low as reasonably achievable, (ALARA). Individualized dose reduction techniques using automated exposure control or adjustment of mA and/or kV according to the patient's size were employed. CLINICAL HISTORY: Sacrum Fx, fall last week FINDINGS: ABDOMEN: There is mild scarring in the lung bases. The heart size is normal. Limited images of the liver are unremarkable. The gallbladder is not seen, likely surgically absent. The spleen is normal. No adrenal mass is identified. The aorta is normal in caliber. There is no significant free fluid or adenopathy. There is mild left renal scarring. There is a small nonobstructing left renal stone. There is no hydronephrosis. There is an umbilical hernia containing fat. PELVIS: The appendix is not identified. There is sigmoid diverticulosis without evidence of diverticulitis. There is irregularity at the distal sacrum at the S5 level consistent with a nondisplaced fracture. The urinary bladder is unremarkable. There is no significant free fluid or adenopathy. IMPRESSION: Nondisplaced fracture at the S5 level. Nonobstructing left renal stone. Reviewed, Interpreted and Dictated by Dusty Muñiz III, MD Transcribed by Aure Jaimes Authenticated and [facility]
== END ==
PROVIDERS: PCP Family Medicine; Visit Provider Orthopaedic Surgery
DX: S32.10XA Unspecified fracture of sacrum, initial encounter for closed fracture (principal); S32.2XXA Fracture of coccyx, initial encounter for closed fracture
CPT/HCPCS: 74176

== ENCOUNTER → 2023-04-23 08:43 | Outpatient (CLI) | payer MEDICARE, SELFPAY ==
--- NOTE | 2023-04-23 08:49 | XR_ITS ---
FINAL REPORT CLINICAL HISTORY: left ankle fracture COMPARISON: 03/18/2023 FINDINGS: Left ankle Three views were obtained. There has been interval ORIF of the distal tibia/fibula. Screw plate and multiple screws are present. There is soft tissue swelling. IMPRESSION: Postsurgical changes. Reviewed, Interpreted and Dictated by Dusty Muñiz III, MD Transcribed by Aure Jaimes Authenticated and [facility]
--- NOTE | 2023-04-23 09:54 | CA_ITS ---
FINAL REPORT TECHNIQUE: Color Doppler, duplex Doppler and compression sonography of the left lower extremity deep venous systems was performed. CLINICAL HISTORY: Hx of blood clots, Post op 3 weeks tib-fib fracture. FINDINGS: There is no evidence of deep venous thrombosis from the level of the groin to the calf. The veins are patent and compressible. IMPRESSION: No evidence of deep venous thrombosis left lower extremity. Reviewed, Interpreted and Dictated by Dusty Muñiz III, MD Transcribed by Tricia Escalante Authenticated and [facility]
== END ==
PROVIDERS: Visit Provider Orthopaedic Surgery
DX: S82.842A Displaced bimalleolar fracture of left lower leg, initial encounter for closed fracture (principal); R07.9 Chest pain, unspecified; M25.572 Pain in left ankle and joints of left foot
CPT/HCPCS: 73610; 93971

== ENCOUNTER → 2023-05-21 09:29 | Outpatient (CLI) | payer MEDICARE, SELFPAY ==
--- NOTE | 2023-05-21 09:33 | XR_ITS ---
FINAL REPORT CLINICAL HISTORY: Lt ankle fracture COMPARISON: 04/23/2023 FINDINGS: LEFT ANKLE Three views demonstrate sideplates and screws securing the distal fibula and medial malleolus. The mortise appears intact. Skin gina medially and laterally have been removed. IMPRESSION: Interval removal skin gina. Stable position of orthopedic hardware. Reviewed, Interpreted and Dictated by Clemente Desai MD Transcribed by Arlen Baker Authenticated and [facility]
--- NOTE | 2023-05-21 09:33 | XR_ITS ---
FINAL REPORT CLINICAL HISTORY: Sacrum fx COMPARISON: 04/16/2023 FINDINGS: SACRUM COCCYX 5 views demonstrate deformity of the S5 level again noted. There is increased sclerosis at this location which may be due to healing fracture. The sacral arches are intact. The sacroiliac joints are unremarkable. No soft tissue abnormality is seen. IMPRESSION: Healing S5 fracture. Reviewed, Interpreted and Dictated by Clemente Desai MD Transcribed by Arlen Baker Authenticated and [facility]
--- NOTE | 2023-05-21 10:40 | XR_ITS ---
FINAL REPORT CLINICAL HISTORY: Lt shoulder pain post fall FINDINGS: LEFT SHOULDER SERIES Three views of the left shoulder were obtained. There is no acute fracture or dislocation. There are mild hypertrophic changes at the AC joint. There is no soft tissue abnormality. IMPRESSION: Mild hypertrophic changes at the AC joint. Reviewed, Interpreted and Dictated by Clemente Desai MD Transcribed by Javad Patel Authenticated and . [facility]
[2023-05-21 12:18] LABS: 25-OH Vitamin D, Total 21.2 ng/mL (30-100)
[2023-05-21 14:21] LABS: Calcium 9.3 mg/dl (8.4-10.2)
[2023-05-22 19:35] LABS: Prealbumin 23 mg/dL (10-36)
== END ==
LOC: RAD 09:31
PROVIDERS: PCP Family Medicine; Visit Provider Orthopaedic Surgery
DX: S32.10XA Unspecified fracture of sacrum, initial encounter for closed fracture (principal); S82.842A Displaced bimalleolar fracture of left lower leg, initial encounter for closed fracture; M25.512 Pain in left shoulder; E55.9 Vitamin D deficiency, unspecified
CPT/HCPCS: 72220; 73030; 73610; 82306; 82310; 84134

== ENCOUNTER → 2023-06-11 11:28 | Outpatient (CLI) | payer MEDICARE, SELFPAY ==
--- NOTE | 2023-06-11 11:34 | XR_ITS ---
FINAL REPORT CLINICAL HISTORY: S/p ORIF in February - non healing COMPARISON: 05/21/2023 FINDINGS: LEFT ANKLE SERIES Three views of the left ankle were obtained. There is no acute fracture or dislocation. The joint spaces are preserved. There is soft tissue swelling present. There are postoperative changes from ORIF of distal tibia and fibula. There are screw plates and multiple screws present, which are stable. IMPRESSION: No acute bony abnormality. Stable postoperative changes as stated above. Reviewed, Interpreted and Dictated by Dusty Muñiz III, MD Transcribed by Javad Patel Authenticated and . [facility]
== END ==
PROVIDERS: PCP Family Medicine; Visit Provider Orthopaedic Surgery
DX: S82.842A Displaced bimalleolar fracture of left lower leg, initial encounter for closed fracture (principal); M25.572 Pain in left ankle and joints of left foot
CPT/HCPCS: 73610

== ENCOUNTER 2023-06-11 13:00 | Outpatient (RCR) | payer MEDICARE, SELFPAY | END 2023-06-11 14:00 | disposition home or self-care (01) | LOC: PT 13:00 | PROVIDERS: Visit Provider Orthopaedic Surgery | DX: S82.842D Displaced bimalleolar fracture of left lower leg, subsequent encounter for closed fracture with routine healing (principal); M25.572 Pain in left ankle and joints of left foot | CPT/HCPCS: 97760 ==

== ENCOUNTER → 2023-07-02 09:33 | Outpatient (CLI) | payer MEDICARE, SELFPAY ==
--- NOTE | 2023-07-02 09:36 | XR_ITS ---
FINAL REPORT CLINICAL HISTORY: Lt ankle fx FINDINGS: Left ankle Three views were obtained. There are postoperative changes in the distal tibia/fibula. There is chronic calcification inferior to the medial malleolus. Soft tissue swelling is seen. There is a small plantar calcaneal spur. IMPRESSION: Postsurgical changes. Reviewed, Interpreted and Dictated by Dusty Muñiz III, MD Transcribed by Aure Jaimes Authenticated and [facility]
== END ==
PROVIDERS: PCP Family Medicine; Visit Provider Orthopaedic Surgery
DX: S82.842A Displaced bimalleolar fracture of left lower leg, initial encounter for closed fracture (principal)
CPT/HCPCS: 73610

== ENCOUNTER 2023-12-06 15:31 | Emergency (ER) | payer MEDICARE, SELFPAY ==
[2023-12-06 15:45] VITALS: BP 115/71; PULSE 54; RESP 18; TEMP 36.7; O2SAT 95; BMI 38.9
--- NOTE | 2023-12-06 15:53 | EXP.UTC ---
Discharge Plan Disposition Patient Disposition: Home, Self-Care Condition: Good Prescriptions Prescriptions: New amoxicillin [amoxicillin] 875 mg tablet 875 mg PO Q12H Qty: 20 0RF methylprednisolone 4 mg Tablets,Dose Pack 4 mg PO DIRECTED 6 Days Qty: 21 0RF Rx Instructions: Take 1 pack as directed for 6 days ondansetron 4 mg Tablet,Disintegrating 4 mg PO Q8H PRN (Reason: Nausea) Qty: 12 0RF No Action furosemide 40 mg tablet 40 mg PO DAILY atorvastatin 40 mg tablet 40 mg PO HS Patient Comments: TAKE 1 TABLET BY MOUTH ONCE DAILY AT NIGHT levothyroxine 137 mcg tablet 137 mcg PO DAILY Patient Comments: TAKE 1 TABLET BY MOUTH ONCE DAILY metoprolol tartrate 100 mg tablet 100 mg PO DAILY hydrocodone-acetaminophen 5-325 mg tablet 1 tab PO BIDP PRN (Reason: Chronic pain) Patient Comments: TAKE 1 TABLET BY MOUTH TWICE DAILY NEEDED donepezil 10 mg tablet 10 mg PO DAILY Patient Comments: TAKE 1 TABLET BY MOUTH ONCE DAILY sertraline 100 mg tablet 100 mg PO DAILY methocarbamol 750 mg tablet 750 mg PO BID allopurinol 300 mg tablet 300 mg PO DAILY Patient Comments: TAKE 1 TABLET BY MOUTH ONCE DAILY benazepril 40 mg tablet 40 mg PO DAILY Patient Comments: TAKE 1 TABLET BY MOUTH ONCE DAILY pregabalin 150 mg capsule 150 mg PO TID Patient Comments: TAKE 1 CAPSULE BY MOUTH THREE TIMES DAILY Xarelto 20 mg tablet 20 mg PO DAILY Patient Comments: TAKE 1 TABLET BY MOUTH ONCE DAILY Referrals Follow up/Referrals: Idris Cueva [Primary Care Provider] - See instructions Activity Restrictions/Add. Instructions Additional Instructions/Restrictions: Drink plenty of fluids. Take tylenol or ibuprofen for pain or fever. Take the medications as directed. Follow up with your regular doctor. GO TO THE ER FOR ANY WORSENING SYMPTOMS Clinical Impressions Clinical Impression: Otitis media Instructions Patient Instructions: Middle Ear Infection Discharge ED Provider: Jignesh Dunn [facility] General Stated complaint: severe ear pain in left ear Time Seen by Provider: 12/06/23 15:53 History of Present Illness Provider Complaint: She states that she has had left ear pain and intermittent dizziness for the past 4 days. Related Data Home Medications Medication Instructions Recorded Confirmed allopurinol 300 mg tablet 300 mg PO DAILY Gout 03/18/23 12/06/23 atorvastatin 40 mg tablet 40 mg PO HS Cholesterol 03/18/23 12/06/23 benazepril 40 mg tablet 40 mg PO DAILY High blood pressure 03/18/23 12/06/23 donepezil 10 mg tablet 10 mg PO DAILY Memory 03/18/23 12/06/23 furosemide 40 mg tablet 40 mg PO DAILY Edema 03/18/23 12/06/23 hydrocodone 5 mg-acetaminophen 325 1 tab PO BIDP PRN Chronic pain 03/18/23 12/06/23 mg tablet levothyroxine 137 mcg tablet 137 mcg PO DAILY Thyroid 03/18/23 12/06/23 methocarbamol 750 mg tablet 750 mg PO BID Muscle spams 03/18/23 12/06/23 metoprolol tartrate 100 mg tablet 100 mg PO DAILY High blood pressure 03/18/23 12/06/23 pregabalin 150 mg capsule 150 mg PO TID Pain 03/18/23 12/06/23 rivaroxaban 20 mg tablet (Xarelto) 20 mg PO DAILY Blood thinner 03/18/23 12/06/23 sertraline 100 mg tablet 100 mg PO DAILY Mood 03/18/23 12/06/23 Previous Rx's Medication Instructions Recorded amoxicillin 875 mg tablet 875 mg PO Q12H #20 tabs 12/06/23 methylprednisolone 4 mg tablets in 4 mg PO DIRECTED 6 days #21 tabs 12/06/23 a dose pack ondansetron 4 mg disintegrating 4 mg PO Q8H PRN Nausea #12 tabs 12/06/23 tablet Allergies Allergy/AdvReac Type Severity Reaction Status Date / Time ciprofloxacin [From CIPRO] Allergy Unknown ITCHING Verified 12/06/23 16:12 codeine Allergy Unknown Verified 12/06/23 16:12 hydromorphone Allergy Unknown Verified 12/06/23 16:12 Sulfa (Sulfonamide Allergy Unknown Verified 12/06/23 16:12 Antibiotics) sulfacetamide Allergy Unknown Verified 12/06/23 16:12 [facility] Disclaimer: The information contained in this section may have been updated after the patient was seen, as this information can be updated by other users. Medical History Allergies Anxiety Chronic back pain Chronic kidney disease Chronic kidney disease Depression Edema BLE Gout Hemorrhoid History of gastroesophageal reflux (GERD) Hyperlipidemia Hypertension Hypothyroid Irritable bowel syndrome (IBS) Kidney stone Migraine Muscle spasm Urinary tract infection Vitamin D deficiency Surgical History H/O tubal ligation History of appendectomy History of carpal tunnel surgery IVONNE History of cholecystectomy History of knee replacement History of surgery NECK FUSION Family History Father Family history of diabetes mellitus type II Social History Smoking Status: Never smoker alcohol intake: never substance use type: denies use current occupational status: retired and disabled Travel in the last 8 weeks: None caffeine: No ROS Obtained: Yes All systems reviewed & no additional complaints except as documented Constitutional Constitutional: Denies chills, Reports fever(s) and Reports poor appetite Eyes Eyes: Denies eye discharge ENT Ears, Nose, Mouth, and Throat: Denies ear discharge, Reports otalgia, Denies hearing loss, Denies sinus pain and Reports sore throat Cardiovascular Cardiovascular: Denies chest pain and Denies dyspnea Respiratory Respiratory: Denies chest congestion, Reports cough and Denies dyspnea Gastrointestinal Gastrointestingal: Denies abdominal pain, diarrhea, nausea or vomiting Musculoskeletal Musculoskeletal: Denies arthralgias Integumentary/Breasts Skin/Breast: Denies rash Physical Exam General General appearance: alert and in no apparent distress Head Head exam: atraumatic, normocephalic and normal inspection Eye Eye exam: Present normal appearance; Absent PERRL or EOMI ENT ENT exam: Present mucous membranes moist and normal external ear exam Expanded ENT Exam TM/Canal exam: Bilateral TM: erythema, bulging and effusion Nose exam: Absent sinus tenderness Nasal speculum exam: Bilateral: normal Mouth exam: Present normal external inspection and other; Absent drooling Teeth exam: Present normal inspection Throat exam: Present tonsillar erythema and tonsillomegaly Neck Neck exam: Present normal inspection, full ROM and trachea midline; Absent tenderness, meningismus or lymphadenopathy Chest Chest inspection: Present normal inspection and symmetric chest wall rise; Absent tenderness Respiratory Respiratory exam: Present normal lung sounds bilaterally; Absent respiratory distress, wheezes or stridor Cardiovascular Cardiovascular exam: Present regular rate, normal rhythm and normal heart sounds; Absent tachycardia or irregular rhythm Abdominal Exam Abdominal exam: Present soft and normal bowel sounds; Absent distention, tenderness, guarding, rebound or rigidity Extremities Exam Extremities exam: Present normal inspection and normal capillary refill; Absent tenderness, joint swelling or calf tenderness Back Exam Back exam: Present normal inspection and full ROM; Absent tenderness, CVA tenderness (R) or CVA tenderness (L) Neurological Exam Neurological exam: Present alert, oriented X3, CN II-XII intact, normal gait and reflexes normal; Absent motor sensory deficit Psychiatric Psychiatric exam: Present normal affect and normal mood Skin Skin exam: Present warm, dry, intact and normal color Lymphatic Lymphatic Findings: no adenopathy Medical Decision Making Medical Records Medical records reviewed: No I reviewed the patient's medical records. [place] Inquiry Pt receiving controlled substance: No
[2023-12-06 16:31] VITALS: BP 115/71; PULSE 54; RESP 18; TEMP 36.7; O2SAT 97
== END 2023-12-06 16:31 | disposition home or self-care (01) ==
PROVIDERS: Emergency Provider Nurse Practitioner Family; PCP Family Medicine
DX: H66.93 Otitis media, unspecified, bilateral (principal); R42 Dizziness and giddiness; E78.5 Hyperlipidemia, unspecified; E03.9 Hypothyroidism, unspecified; I10 Essential (primary) hypertension
CPT/HCPCS: 99204; 99212; G0463

== ENCOUNTER 2024-01-06 16:33 | Outpatient (CLI) | payer MEDICARE, SELFPAY ==
--- NOTE | 2024-01-06 16:40 | XR_ITS ---
PROCEDURE INFORMATION: Exam: XR Lumbosacral Spine Exam date and time: 01/06/2024 4:41 PM Age: 68 years old Clinical indication: Patient HX: PT states low back pain, HX of multiple falls. ; Additional info: Degeneration of lumbar intervertebral disc TECHNIQUE: Imaging protocol: Radiologic exam of the lumbosacral spine. Views: 4 or 5 views. COMPARISON: XR SACRUM COCCYX MIN 2V 05/21/2023 9:46 AM FINDINGS: Bones/joints: There is a slight levo scoliotic curvature of the spine. There is anterolisthesis of L3 on L4 and L4 on L5. There is no evidence for dynamic instability on flexion and extension views. The alignment of the lumbar spine is within normal limits with maintained lumbar lordosis. There are moderate degenerative changes characterized by disc space narrowing at multiple levels, most pronounced in the lower lumbar region. There is evidence of osteophyte formation along the vertebral bodies. The facet joints show moderate hypertrophic changes. The vertebral body heights are preserved, and there are no signs of acute fracture or dislocation. Nonspecific lower thoracic wedge deformities without compression injury identified. Soft tissues: Unremarkable. Intraperitoneal space: Suture material in the right hemiabdomen. Vasculature: Scattered atherosclerotic disease of the arterial vasculature. The visualized portions of the abdominal aorta and pelvic bones appear unremarkable. Other findings: Prevertebral and paravertebral soft tissues appear unremarkable. IMPRESSION: 1. Moderate degenerative changes in the lumbar spine, including disc space narrowing and osteophyte formation. 2. No evidence of acute fracture or significant malalignment.
== END 2024-01-06 23:59 ==
LOC: RAD 16:36
PROVIDERS: PCP Family Medicine; Visit Provider Anesthesiology
DX: M51.36 Other intervertebral disc degeneration, lumbar region (principal)
CPT/HCPCS: 72110

== ENCOUNTER 2024-08-02 15:18 | Outpatient (CLI) | payer MEDICARE, SELFPAY ==
--- NOTE | 2024-08-02 | XR_ITS ---
FINAL REPORT CLINICAL HISTORY: RADICULOPATHY, LUMBAR REGION FINDINGS: LUMBAR SPINE Five views demonstrate no acute fracture. There are moderate degenerative changes with multilevel osteophytes. Note is made of rightward curvature. Vascular calcification is identified. There is mild anterolisthesis of L3 on 4 and L4 on 5. There is partial improvement in the anterolisthesis of L3 on 4 and L4 on 5 with extension. IMPRESSION: Multilevel degenerative changes. Partial improvement with anterolisthesis of L3 on 4 and L4 on 5 with extension. Reviewed, Interpreted and Dictated by Dusty Muñiz III, MD Transcribed by Aure Jaimes Authenticated and [facility]
== END 2024-08-02 23:59 | disposition home or self-care (01) ==
LOC: RAD 15:20
PROVIDERS: PCP Family Medicine; Visit Provider Anesthesiology
DX: M54.16 Radiculopathy, lumbar region (principal)
CPT/HCPCS: 72110